=== PATIENT | female | born 1940 | race Caucasian/White ===

== ENCOUNTER 2017-04-24 13:44 | Emergency (ER) | payer SELFPAY | END 2017-04-24 15:52 | disposition home or self-care (01) | LOC: D.ER 13:44 | DX: R07.89 Other chest pain (principal); W19.XXXA Unspecified fall, initial encounter; Y93.89 Activity, other specified; Y92.012 Bathroom of single-family (private) house as the place of occurrence of the external cause; I10 Essential (primary) hypertension ==